=== PATIENT | male | born 1975 | race African-American/Black ===

== ENCOUNTER → 2019-10-13 | Outpatient (CLI) | payer OTHER | LOC: ZCOL.LAB 14:45 | DX: Z20.828 Contact with and (suspected) exposure to other viral communicable diseases (principal) ==

== ENCOUNTER 2019-11-12 15:00 | Observation (INO) | payer OTHER ==
[~2019-11-12] VITALS: Ht 177.8 cm; Wt 116.3 kg
[2019-11-12] MEDS ORDERED: COREG 25MG25 MG/TAB PO (15:37)
[2019-11-12] MEDS ORDERED: PRINIVIL20 MG PO (15:38)
[2019-11-12 16:20] LABS: BASO # 0.1 (0.0-0.2); BASO % 0.4 % (0.0-2.0); EOS # 0.4 (0.0-0.7); EOS % 2.9 % (0-4.0); GRAN # 11.1 (1.4-6.5); GRAN % 77.3 % (42.2-75.2); HEMOGLOBIN 11.2 g/dl (13.5-18.0); LYMPH # 1.6 (1.2-3.4); LYMPH % 10.8 % (20.0-51.0); MEAN CELL VOLUME 75 fl (80.0-100.0); MEAN CORPUSCULAR HEMOGLOBIN 25 pg (27.0-31.0); MEAN CORPUSCULAR HGB CONC 34 g/dl (33.0-37.0); MEAN PLATELET VOLUME 11.5 fl (7.4-10.4); MONO # 1.1 (0.1-0.6); MONO % 7.7 % (1.7-9.3); PLATELET COUNT 236 K/mm3 (130-400); RED BLOOD COUNT 4.45 M/mm3 (4.20-5.60); REDCELL DISTRIBUTION WIDTH-CV 17.9 % (11.5-14.5)
[2019-11-12 16:22] LABS: HEMATOCRIT 33.4 % (42.0-52.0)
[2019-11-12 16:32] LABS: ALBUMIN 4.1 gm/dL (3.5-5.0); BILIRUBIN,TOTAL 0.6 mg/dL (0.0-1.0); CREATININE, serum 2.31 (0.66-1.25); POTASSIUM 4.5 mmol/L (3.4-5.0); TOTAL PROTEIN 8.2 gm/dL (6.4-8.2)
[2019-11-12 16:45] LABS: C-REACTIVE PROTEIN 13.7 mg/dL (0.0-0.9)
[2019-11-12] MEDS ORDERED: NORCO 325 MG-51 TAB PO ×2 (17:55)
[2019-11-12] MEDS ORDERED: ZOFRAN ODT4 MG PO ×2 (17:55)
[2019-11-12] MEDS ORDERED: VALIUM 5MG T5 MG/TAB PO ×2 (17:55)
[2019-11-12 19:27] VITALS: BP 187/102; PULSE 86; TEMP 97.8
--- NOTE | 2019-11-12 20:30 | NUR ---
IV SITE TO LEFT AC INFILTRATED. NEW IV STARTED TO RIGHT HAND BY HARINI LATHAM. HAS IVF INFUSING WITHOUT PROBLEM. RT ABDOMEN WITH REDDENED, INDURATED AND WARM AREA. DENIES NEED FOR PAIN MEDS AT THIS TIME.
[2019-11-12 20:33] VITALS: BP 187/102; PULSE 86; TEMP 97.8
[2019-11-12 23:24] VITALS: BP 154/87; PULSE 78; TEMP 97.8
[2019-11-13] VITALS (14 sets, daily range): BP systolic 128–178; BP diastolic 55–90; PULSE 70–84; TEMP 97.8–98.9
--- NOTE | 2019-11-13 06:00 | NUR ---
HAS BEEN NPO SINCE MIDNIGHT. VOIDING WITHOUT PROBLEM.
[2019-11-13 06:32] LABS: BASO # 0.1 (0.0-0.2); BASO % 0.5 % (0.0-2.0); EOS # 0.4 (0.0-0.7); EOS % 2.8 % (0-4.0); GRAN # 9.6 (1.4-6.5); GRAN % 76.4 % (42.2-75.2); LYMPH # 1.5 (1.2-3.4); MEAN CELL VOLUME 75 fl (80.0-100.0); MEAN CORPUSCULAR HGB CONC 34 g/dl (33.0-37.0); MEAN PLATELET VOLUME 11.5 fl (7.4-10.4); MONO % 7.5 % (1.7-9.3); PLATELET COUNT 198 K/mm3 (130-400); RED BLOOD COUNT 3.84 M/mm3 (4.20-5.60); REDCELL DISTRIBUTION WIDTH-CV 17.6 % (11.5-14.5)
[2019-11-13 06:33] LABS: HEMATOCRIT 28.8 % (42.0-52.0); HEMOGLOBIN 9.8 g/dl (13.5-18.0); MEAN CORPUSCULAR HEMOGLOBIN 26 pg (27.0-31.0)
[2019-11-13 06:46] LABS: ALBUMIN 3.5 gm/dL (3.5-5.0); BILIRUBIN,TOTAL 0.5 mg/dL (0.0-1.0); CALCIUM 8.4 mg/dL (8.4-10.2); CREATININE, serum 2.34 (0.66-1.25); POTASSIUM 4.1 mmol/L (3.4-5.0); TOTAL PROTEIN 7.1 gm/dL (6.4-8.2)
--- NOTE | 2019-11-13 08:43 | NUR ---
Patient alert and oriented, answers questons appropriately. See assessment. RLQ/RUQ abscess area with firmness, redness and induration noted. Patient states area is tender. No drainage noted. No other c/o at this time.
--- NOTE | 2019-11-13 09:04 | NUR ---
Dr Escobedo here to see patient.
--- NOTE | 2019-11-13 12:12 | NUR ---
Patient to surgery with surgical staff at this time.
--- NOTE | 2019-11-13 14:20 | NUR ---
Returns from surgery. Assessment unchanged except for dressing to RLQ with scant amount shadow drainage noted. No c/o pain or discomfort.
--- NOTE | 2019-11-13 15:33 | NUR ---
[employer] met with the patient to complete initial intake. The patient lives in [place] with his , Cinthya. The patient denies DME use and is independent with ADLs. The patient does not have a PCP. SW provided the patient with a list of [place] providers. The patient receives medications from [facility] with no difficulties. The patient does not have advanced directives in the EMR and was not interested in DPOA-HC form. The patient plans to return home and his will provide transportation. There are no additional needs at this time.
--- NOTE | 2019-11-13 20:45 | NUR ---
Pt. sitting up in bed at this time. Pt. is A&OX3, assessment complete. IV to rt. hand patent, abx running at this time. Dressing to rt. abd. abscess site changed at this time. Serosanguinous drainage noted to old dressing. Iodaform packing left in place at this time. 3 4X4's and 1 abd applied to dressing site. Pt. tolerated well. Pt. denies pain or other needs, call light within reach.
[2019-11-14 04:05] VITALS: BP 155/85; PULSE 78; TEMP 98.2
[2019-11-14 08:18] VITALS: BP 175/102; PULSE 76; TEMP 98.1
--- NOTE | 2019-11-14 10:18 | NUR ---
Patient resting in bed. very plesant. he is curious aboout discharge planning. Patient dressing change supplies gathered to be changed 24 hrs post op per orders. iv antibioitcs per orders.
[2019-11-14 11:24] VITALS: BP 182/96; PULSE 74; TEMP 98.5
--- NOTE | 2019-11-14 12:55 | NUR ---
rounded & discharge orders were obtained. Patient finished Iv antibioitc & script for antibioitcs called into [facility] for patient. Patient incision was re dressed per . Iodaform wick was advanced by him & new gauze & abd dressing. No new iodaform packing, per doctor. Patient given all discharge instuctions. He denies questions or cocnerns. Iv Dc. Patietn dressed and ambulated out with all belongings, his taking him home
== END 2019-11-14 12:58 | disposition home or self-care (01) ==
LOC: COL.ER 15:00 → SURG 17:43
PROVIDERS: Emergency Medicine; ADMIT Surgery
DX: L02.211 Cutaneous abscess of abdominal wall (principal); I10 Essential (primary) hypertension; Z79.899 Other long term (current) drug therapy
CPT/HCPCS: G0378; J2543; J2704; J3010; J7030

== ENCOUNTER 2020-01-19 21:21 | Emergency (ER) | payer SELFPAY ==
[~2020-01-19] VITALS: Ht 177.8 cm; Wt 115.0 kg
[~2020-01-19 21:21] MED LIST: COREG 25MG25 MG/TAB PO; NORCO 325 MG-51 TAB PO; PRINIVIL20 MG PO; VALIUM 5MG T5 MG/TAB PO; ZOFRAN ODT4 MG PO
[2020-01-19 21:37] VITALS: TEMP 98.6
[2020-01-19] MEDS ORDERED: APRESOLINE50 MG PO (21:41)
[2020-01-19] MEDS ORDERED: ADALAT CC30 MG PO (21:42)
[2020-01-19] MEDS ORDERED: NOXAFILTAB PO (21:42)
[2020-01-19] MEDS ORDERED: COREG 25MG25 MG/TAB PO (21:55)
[2020-01-19 22:34] LABS: BASO # 0.1 (0.0-0.2); BASO % 0.9 % (0.0-2.0); EOS # 0.5 (0.0-0.7); EOS % 4.9 % (0-4.0); GRAN % 67.2 % (42.2-75.2); HEMOGLOBIN 12.5 g/dl (13.5-18.0); LYMPH # 1.9 (1.2-3.4); LYMPH % 18.1 % (20.0-51.0); MEAN CELL VOLUME 75 fl (80.0-100.0); MEAN CORPUSCULAR HEMOGLOBIN 25 pg (27.0-31.0); MEAN CORPUSCULAR HGB CONC 34 g/dl (33.0-37.0); MEAN PLATELET VOLUME 10.7 fl (7.4-10.4); MONO # 0.8 (0.1-0.6); PLATELET COUNT 200 K/mm3 (130-400); RED BLOOD COUNT 4.92 M/mm3 (4.20-5.60); REDCELL DISTRIBUTION WIDTH-CV 18.9 % (11.5-14.5)
[2020-01-19 22:36] LABS: HEMATOCRIT 36.7 % (42.0-52.0)
[2020-01-19 22:48] LABS: ALANINE AMINOTRANSFERASE 27 U/L (4-49); ALBUMIN 4.5 gm/dL (3.5-5.0); ALKALINE PHOSPHATASE 101 U/L (50-136); ANION GAP 11 mmol/L (7-16); AST,SGOT 24 U/L (15-37); BILIRUBIN,TOTAL 0.4 mg/dL (0.0-1.0); BLOOD UREA NITROGEN 21 mg/dL (9-20); CALCIUM 9.5 mg/dL (8.4-10.2); CARBON DIOXIDE 25 mmol/L (22-30); CHLORIDE 105 mmol/L (98-107); CREATININE, serum 2.16 (0.66-1.25); GLUCOSE 126 mg/dL (74-106); SODIUM 142 mmol/L (137-145); TOTAL PROTEIN 8.3 gm/dL (6.4-8.2)
[2020-01-19 23:00] LABS: TROPONIN-I < 0.012 ng/mL (0.000-0.035)
[2020-01-20 00:11] VITALS: BP 188/126; PULSE 90
== END 2020-01-20 00:17 | disposition home or self-care (01) ==
LOC: COL.ER 21:21
PROVIDERS: Emergency Medicine
DX: I10 Essential (primary) hypertension (principal)

== ENCOUNTER → 2020-03-21 | Outpatient (CLI) | payer SELFPAY ==
[~2020-03-21] MED LIST changes: +ADALAT CC30 MG PO; +APRESOLINE50 MG PO; +NOXAFILTAB PO
== END ==
LOC: ZCOL.LAB 18:51
DX: U07.1 COVID-19 (principal)

== ENCOUNTER → 2020-04-20 | Outpatient (CLI) | payer SELFPAY ==
[2020-04-20 12:05] LABS: BASO # 0.1 (0.0-0.2); BASO % 0.6 % (0.0-2.0); EOS # 0.5 (0.0-0.7); GRAN # 5.9 (1.4-6.5); GRAN % 67.1 % (42.2-75.2); HEMATOCRIT 36.7 % (42.0-52.0); HEMOGLOBIN 12.4 g/dl (13.5-18.0); LYMPH # 1.5 (1.2-3.4); LYMPH % 17.1 % (20.0-51.0); MEAN CELL VOLUME 75 fl (80.0-100.0); MEAN CORPUSCULAR HEMOGLOBIN 25 pg (27.0-31.0); MEAN CORPUSCULAR HGB CONC 34 g/dl (33.0-37.0); MEAN PLATELET VOLUME 10.8 fl (7.4-10.4); MONO # 0.7 (0.1-0.6); MONO % 8.2 % (1.7-9.3); PLATELET COUNT 183 K/mm3 (130-400); RED BLOOD COUNT 4.91 M/mm3 (4.20-5.60); REDCELL DISTRIBUTION WIDTH-CV 19.9 % (11.5-14.5)
[2020-04-20 12:14] LABS: ALBUMIN 4.5 gm/dL (3.5-5.0); BILIRUBIN,TOTAL 0.7 mg/dL (0.0-1.0); CALCIUM 9.5 mg/dL (8.4-10.2); CHOLESTEROL RISK RATIO 5.7; CREATININE, serum 2.02 (0.66-1.25); POTASSIUM 4.7 mmol/L (3.4-5.0); TOTAL PROTEIN 8.2 gm/dL (6.4-8.2)
[2020-04-20 12:43] LABS: TSH w REFLEX 2.42 uIU/mL (0.465-4.680)
== END ==
LOC: COL.LAB 11:11
PROVIDERS: Registered Nurse
DX: Z13.9 Encounter for screening, unspecified (principal)

== ENCOUNTER → 2020-06-24 | Outpatient (CLI) | payer SELFPAY | LOC: COL.VAS 12:45 | DX: Z86.79 Personal history of other diseases of the circulatory system (principal); I34.0 Nonrheumatic mitral (valve) insufficiency ==

== ENCOUNTER → 2020-11-14 | Outpatient (CLI) | payer SELFPAY ==
[2020-11-14 16:29] LABS: BASO # 0.1 (0.0-0.2); BASO % 0.7 % (0.0-2.0); EOS # 0.4 (0.0-0.7); GRAN # 5.6 (1.4-6.5); GRAN % 65.5 % (42.2-75.2); HEMATOCRIT 38.7 % (42.0-52.0); HEMOGLOBIN 13.3 g/dl (13.5-18.0); LYMPH # 1.7 (1.2-3.4); LYMPH % 19.9 % (20.0-51.0); MEAN CELL VOLUME 79 fl (80.0-100.0); MEAN CORPUSCULAR HEMOGLOBIN 27 pg (27.0-31.0); MEAN CORPUSCULAR HGB CONC 34 g/dl (33.0-37.0); MEAN PLATELET VOLUME 11.9 fl (7.4-10.4); MONO # 0.7 (0.1-0.6); MONO % 8.3 % (1.7-9.3); PLATELET COUNT 164 K/mm3 (130-400); RED BLOOD COUNT 4.92 M/mm3 (4.20-5.60); REDCELL DISTRIBUTION WIDTH-CV 15.8 % (11.5-14.5)
[2020-11-14 16:31] LABS: ALBUMIN 4.3 gm/dL (3.5-5.0); BILIRUBIN,TOTAL 0.3 mg/dL (0.0-1.0); CALCIUM 9.7 mg/dL (8.4-10.2); CREATININE, serum 1.97 (0.66-1.25); POTASSIUM 4.6 mmol/L (3.4-5.0); TOTAL PROTEIN 7.9 gm/dL (6.4-8.2)
[2020-11-20 16:30] LABS: COCCIDIOIDES AB IGG Positive (Negative); COCCIDIOIDES AB IGM Negative (Negative)
== END ==
LOC: COL.LAB 15:43
DX: B38.9 Coccidioidomycosis, unspecified (principal); M79.10 Myalgia, unspecified site

== ENCOUNTER → 2021-02-21 | Outpatient (CLI) | payer SELFPAY ==
[2021-02-21 11:12] LABS: CHOLESTEROL RISK RATIO 3.9
== END ==
LOC: COL.LAB 10:12
PROVIDERS: Registered Nurse
DX: E78.5 Hyperlipidemia, unspecified (principal); Z79.899 Other long term (current) drug therapy

== ENCOUNTER → 2021-02-21 | Outpatient (CLI) | payer SELFPAY ==
[2021-02-21 11:01] LABS: BASO # 0.1 K/mm3 (0.0-0.2); BASO % 0.8 % (0.0-2.0); EOS # 0.4 K/mm3 (0.0-0.7); EOS % 5.3 % (0-4.0); GRAN # 5.5 K/mm3 (1.4-6.5); GRAN % 66.8 % (42.2-75.2); HEMATOCRIT 41.9 % (42.0-52.0); HEMOGLOBIN 14.5 g/dl (13.5-18.0); LYMPH # 1.7 K/mm3 (1.2-3.4); LYMPH % 20.2 % (20.0-51.0); MEAN CELL VOLUME 77 fl (80.0-100.0); MEAN CORPUSCULAR HEMOGLOBIN 27 pg (27.0-31.0); MEAN CORPUSCULAR HGB CONC 35 g/dl (33.0-37.0); MEAN PLATELET VOLUME 11.3 fl (7.4-10.4); MONO # 0.5 K/mm3 (0.1-0.6); MONO % 6.2 % (1.7-9.3); PLATELET COUNT 174 K/mm3 (130-400); RED BLOOD COUNT 5.41 M/mm3 (4.20-5.60); REDCELL DISTRIBUTION WIDTH-CV 16.1 % (11.5-14.5)
[2021-02-21 11:14] LABS: ALBUMIN 4.1 gm/dL (3.5-5.0); BILIRUBIN,TOTAL 0.5 mg/dL (0.2-1.2); C-REACTIVE PROTEIN 1.5 mg/dL (0.00-0.50); CALCIUM 10.1 mg/dL (8.4-10.2); CREATININE, serum 2.1 mg/dL (0.72-1.25); POTASSIUM 5.2 mmol/L (3.5-4.5); TOTAL PROTEIN 8.5 gm/dL (6.2-8.1)
[2021-02-21 11:35] LABS: ERYTHROCYTE SEDIMENTATION RATE 10 mm/hr (0-15)
[2021-03-02 14:24] LABS: COCCIDIOIDES AB IGG Positive (Negative); COCCIDIOIDES AB IGM Negative (Negative)
== END ==
LOC: COL.LAB 08:27
PROVIDERS: Internal Medicine Infectious Disease
DX: B38.9 Coccidioidomycosis, unspecified (principal); Z76.89 Persons encountering health services in other specified circumstances

== ENCOUNTER → 2021-07-25 | Outpatient (CLI) | payer OTHER ==
[2021-07-25 10:06] LABS: BASO # 0.1 K/mm3 (0.0-0.2); BASO % 0.7 % (0.0-2.0); EOS # 0.4 K/mm3 (0.0-0.7); EOS % 4.5 % (0.0-4.0); GRAN # 5.7 K/mm3 (1.4-6.5); GRAN % 67.4 % (42.2-75.2); HEMATOCRIT 38.2 % (42.0-52.0); HEMOGLOBIN 13.3 g/dl (13.5-18.0); LYMPH # 1.7 K/mm3 (1.2-3.4); LYMPH % 19.5 % (20.0-51.0); MEAN CELL VOLUME 78 fl (80.0-100.0); MEAN CORPUSCULAR HEMOGLOBIN 27 pg (27-31); MEAN CORPUSCULAR HGB CONC 35 g/dl (33.0-37.0); MEAN PLATELET VOLUME 10.9 fl (7.4-10.4); MONO # 0.6 K/mm3 (0.1-0.6); MONO % 7.4 % (1.7-9.3); PLATELET COUNT 161 K/mm3 (130-400); RED BLOOD COUNT 4.92 M/mm3 (4.20-5.60); REDCELL DISTRIBUTION WIDTH-CV 16.2 % (11.5-14.5)
[2021-07-25 10:21] LABS: BILIRUBIN,TOTAL 0.4 mg/dL (0.2-1.2); CREATININE, serum 1.92 mg/dL (0.72-1.25); POTASSIUM 4.8 mmol/L (3.5-4.5); TOTAL PROTEIN 7.5 gm/dL (6.2-8.1)
[2021-07-25 10:37] LABS: ERYTHROCYTE SEDIMENTATION RATE 18 mm/hr (0-15)
== END ==
LOC: COL.LAB 09:42
PROVIDERS: Family Medicine
DX: Z02.71 Encounter for disability determination (principal); B38.0 Acute pulmonary coccidioidomycosis

== ENCOUNTER → 2022-06-28 | Outpatient (CLI) | payer OTHER ==
[2022-06-28 15:22] LABS: BASO # 0.1 K/mm3 (0.0-0.2); BASO % 0.6 % (0.0-2.0); EOS # 0.4 K/mm3 (0.0-0.7); EOS % 4.3 % (0.0-4.0); GRAN # 6.2 K/mm3 (1.4-6.5); GRAN % 63.1 % (42.2-75.2); HEMATOCRIT 38.8 % (42.0-52.0); HEMOGLOBIN 13.2 g/dl (13.5-18.0); LYMPH # 2.3 K/mm3 (1.2-3.4); LYMPH % 23.2 % (20.0-51.0); MEAN CELL VOLUME 77 fl (80.0-100.0); MEAN CORPUSCULAR HEMOGLOBIN 26 pg (27-31); MEAN CORPUSCULAR HGB CONC 34 g/dl (33.0-37.0); MEAN PLATELET VOLUME 10.9 fl (7.4-10.4); MONO # 0.8 K/mm3 (0.1-0.6); MONO % 8.2 % (1.7-9.3); PLATELET COUNT 174 K/mm3 (130-400); RED BLOOD COUNT 5.02 M/mm3 (4.20-5.60); REDCELL DISTRIBUTION WIDTH-CV 16.2 % (11.5-14.5)
[2022-06-28 15:42] LABS: ALBUMIN 4.2 gm/dL (3.5-5.0); BILIRUBIN,TOTAL 0.4 mg/dL (0.2-1.2); CALCIUM 9.8 mg/dL (8.4-10.2); CHOLESTEROL RISK RATIO 4.3; CREATININE, serum 2.29 mg/dL (0.72-1.25); POTASSIUM 4.3 mmol/L (3.5-4.5); TOTAL PROTEIN 8.1 gm/dL (6.2-8.1)
[2022-06-28 16:02] LABS: TSH w REFLEX 2.355 uIU/mL (0.350-4.940)
[2022-06-28 16:14] LABS: HIV 1/2 Antibodies Non-Reactive; HIV-1p24 Antigen Non-Reactive
[2022-06-28 23:15] LABS: HEPATITIS C VIRUS ANTIBODY Negative (Negative)
== END ==
LOC: COL.LAB 14:37
PROVIDERS: Registered Nurse
DX: Z13.9 Encounter for screening, unspecified (principal); Z79.899 Other long term (current) drug therapy; E55.9 Vitamin D deficiency, unspecified; E78.5 Hyperlipidemia, unspecified; I12.9 Hypertensive chronic kidney disease with stage 1 through stage 4 chronic kidney disease, or unspecified chronic kidney disease; N18.9 Chronic kidney disease, unspecified

== ENCOUNTER 2023-11-06 23:16 | Emergency (ER) | payer SELFPAY ==
[~2023-11-06] VITALS: Ht 177.8 cm; Wt 122.7 kg
[2023-11-06 23:28] VITALS: TEMP 98.6
[2023-11-06] MEDS ORDERED: predniSONE 20 MG TAB PO ONE (23:45)
[2023-11-06] MEDS ORDERED: Ketorolac 30 MG/ML VIAL IM ONE (23:45)
[2023-11-06] MEDS ORDERED: MEDROL 4MG DOSPA4 MG PO (23:51)
[2023-11-07 00:10] VITALS: BP 156/96; PULSE 80
== END 2023-11-07 00:10 | disposition home or self-care (01) ==
LOC: COL.ER 23:16
DX: M72.2 Plantar fascial fibromatosis (principal); F17.200 Nicotine dependence, unspecified, uncomplicated
CPT/HCPCS: J1885; J7512